=== PATIENT | male | born 1970 | race Two or more races ===

== ENCOUNTER 2024-05-18 12:47 | Emergency (ER) | payer MEDICAID, OTHER ==
[~2024-05-18] VITALS: Ht 180.3 cm; Wt 92.0 kg
[2024-05-18 14:20] VITALS: TEMP 97.9
[2024-05-18] MEDS: KETOROLAC TROMETH 30 MG/ML 1ML VIAL IM ONE (14:30)
[2024-05-18] MEDS ORDERED: IBUP-1455 PO (15:15)
[2024-05-18 15:25] VITALS: BP 127/79; PULSE 84; RESP 16; O2SAT 98
== END 2024-05-18 15:25 | disposition home or self-care (01) ==
LOC: ER 12:47
DX: S46.911A Strain of unspecified muscle, fascia and tendon at shoulder and upper arm level, right arm, initial encounter (principal); X58.XXXA Exposure to other specified factors, initial encounter; Y93.89 Activity, other specified; Y92.89 Other specified places as the place of occurrence of the external cause; Y99.0 Civilian activity done for income or pay
CPT/HCPCS: 73030; 73060; 96372; 99284; J1885